=== PATIENT | female | born 1935 | race Caucasian/White ===

== ENCOUNTER 2017-03-07 17:16 | Emergency (ER) | payer MEDICARE, OTHER ==
[~2017-03-07 17:16] MED LIST: COUMADIN PO; DARVOCET-N 1001 TA1 PO; UNIRETIC PO; VICODIN PO
== END 2017-03-07 18:16 | disposition home or self-care (01) ==
LOC: CFTX 17:16
DX: L50.0 Allergic urticaria (principal); I10 Essential (primary) hypertension; J44.9 Chronic obstructive pulmonary disease, unspecified; Z88.0 Allergy status to penicillin; Z88.8 Allergy status to other drugs, medicaments and biological substances
CPT/HCPCS: 99282

== ENCOUNTER 2017-06-04 07:20 | Inpatient (IN) | payer MEDICARE, OTHER ==
[~2017-06-04] VITALS: Ht 152.4 cm; Wt 59.8 kg
--- NOTE | ~2017-06-04 | CO ---
Unit #: [id number] #: [id number] Patient: JESSICA JI [id number] [address] [place], [place] [address] [id number] I MR#: [id number] NAME: JESSICA JI. ROOM: 97294 Age: 81 Sex: F Admission Date: 06/04/2017 : 1935 Attending Physician: Pedro Miranda M.D. Primary Care Physician: Nicolas Guerin M.D. Consultation Date: 06/04/2017 CONSULTATION REPORT REASON FOR CONSULT Hypoxic respiratory failure. HISTORY OF PRESENT ILLNESS This is a very pleasant 81-year-old female, who has a past medical history significant for valve replacement on Coumadin, hypertension, congestive heart failure, who presented to the emergency room with progressive shortness of breath for the last few days. Patient stated that she lives with her son and usually she is able to get up and walk; however, for the last two weeks, she has been feeling profoundly fatigued and having trouble breathing. She was short of breath and coughing but no sputum production. She denied any fever and she said that she always feels cold. She denied any sinus drainage or sneezing. Patient stated that she is compliant with her medication. Patient does not use oxygen at home, and she has no sleep machine. PAST MEDICAL HISTORY 1. Valve replacement, unsure if it is aortic or mitral. 2. Questionable COPD. 3. Hypertension. 4. Diverticular disease. PAST SURGICAL HISTORY 1. Hysterectomy. 2. Cholecystectomy. 3. Mechanical valve. SOCIAL HISTORY The patient never smoked. No history of alcohol. No drug abuse. She lives with her son. ALLERGIES No known drug allergies. FAMILY HISTORY Hypertension. REVIEW OF SYSTEMS A 12-point review of systems was obtained and was negative except for what was mentioned in the HPI. PHYSICAL EXAMINATION GENERAL: The patient is in mild respiratory distress. Unit #: [id number] #: [id number] Patient: JESSICA JI VITAL SIGNS: Heart rate 124, respiratory rate 18, O2 saturation 96% on 4 L nasal cannula. HEENT: Atraumatic, normocephalic. PERRLA. EOMI. NECK: Supple. No JVD. No lymphadenopathy. CHEST: Coarse rhonchi in the mid lung zone, mainly on the left side. HEART: S1, S2. Sinus tachycardia. ABDOMEN: Soft, nontender. Bowel sounds are positive. No hepatosplenomegaly. EXTREMITIES: No edema or cyanosis. SKIN: No rashes. CENTRAL NERVOUS SYSTEM: Awake, alert, oriented x3. No focal motor/sensory deficits. DIAGNOSTIC STUDIES LABORATORY: Potassium 3.4. Bilirubin 1.4. BNP 1546. White blood count 9.5, hemoglobin 13.7. IMAGING: Chest x-ray and CT abdomen are reviewed and noted by me and consistent with pleural effusion. ASSESSMENT 1. Acute hypoxic respiratory failure. 2. Acute on chronic congestive heart failure, likely systolic. 3. Rule out pneumonia. 4. Diverticular disease. 5. Mechanical valve replacement. 6. Hypertension. PLAN 1. (1) and labs to rule out pneumonia completely. At this point, will need to dedicated CT chest to better evaluate the lung parenchyma. 2. Will hold on antibiotics until further testing is back. 3. Will obtain procalcitonin and follow blood culture. 4. IV diuretics per cardiology. 5. Bronchodilator and mucolytics. 6. Physical therapy evaluation. 7. Coumadin. I would like to thank Dr. Miranda for allowing me to be part of this patient's care. Dictated by... Arnel Fisher TD: 06/04/2017 14:33 JOB #: [id number] Unit #: [id number] #: [id number] Patient: SEVENNADIYA MORTONTREMAINE Durham CONSULTATION REPORT Page 1 of 1 X LANIE CARPIO MD CONSULTATION REPORT
--- NOTE | ~2017-06-04 | CO ---
Unit #: [id number] #: [id number] Patient: JESSICA JI [id number] [address] [place], [place] [address] [id number] I MR#: [id number] NAME: JESSICA JI. ROOM: 551 Age: 81 Sex: F Admission Date: 06/04/2017 : 1935 Attending Physician: Pedro Miranda M.D. Primary Care Physician: Nicolas Guerin M.D. Consultation Date: 06/04/2017 CONSULTATION REPORT DICTATED FOR Dr. Dany Tapia, [facility] Cardiology. REASON FOR CONSULT Possible CHF. HISTORY OF PRESENT ILLNESS The patient is a 81-year-old white female, who was seen by Dr. Osullivan with a history of mechanical AVR in 1997 where she is on Coumadin; nonischemic cardiomyopathy with an EF of 10% to 15%; cardiac cath in 05/2015, results below; hypertension; and recent admit to [facility] where she did have an acute kidney injury with a creatinine of 1.2. The patient was recently sent home from [facility] and she states that for the past one week, she has been short of breath with exertion. For example, walking to the bathroom at home. She also complains of difficulty breathing when she lies flat as well as some nausea and a nonproductive cough as well as right-sided chest pain. The patient denies any vomiting, diarrhea, fevers, or chills. No lightheadedness, dizziness, or syncope. The patient had a cardiac cath in 05/2015 that showed normal left main LAD mid 50% to 60% stenosis, left circumflex mid 60% calcified lesion, RCA was dominant with 30%. Cardiology was asked to evaluate the patient for possible CHF. PAST MEDICAL HISTORY 1. Hypertension. 2. Mechanical AVR in 1997. 3. Herpes zoster. 4. Appendectomy. 5. Nonischemic cardiomyopathy with an EF of 10% to 15%. PAST SURGICAL HISTORY Includes: 1. Appendectomy. 2. Cholecystectomy. ALLERGIES Include penicillin, codeine, and aspirin. HOME MEDICATIONS 1. [place]land 7.5/325 one tablet four times a day as needed for pain. 2. Bumex 1 mg p.o. daily. 3. Coreg 3.125 mg p.o. twice a day. Unit #: [id number] #: [id number] Patient: JESSICA JI. Coumadin 5 mg p.o. on Wednesday, Wednesday, , Wednesday, and Wednesday p.o. Tuesdays and Fridays. REVIEW OF SYSTEMS A 10-point review of systems negative except for as listed in HPI. PHYSICAL EXAMINATION GENERAL: This is a 81-year-old white female, who is alert and oriented x3, in no apparent distress. VITAL SIGNS: Blood pressure 121/94, temperature 97.3, pulse 115, and respirations 20. HEENT: Pupils are equal, round, and reactive. Oral mucosa is moist. NECK: No JVD. No thyromegaly. No lymphadenopathy. No carotid bruits. HEART: S1 and S2. No S3 or S4. Positive click from mechanical valve. No rubs. No murmurs. LUNGS: Coarse rhonchi throughout. ABDOMEN: Soft. Bowel sounds positive. Nontender. Nondistended. EXTREMITIES: No swelling. NEUROLOGICAL: No neuro deficits noted. DIAGNOSTIC STUDIES LABORATORY RESULTS: White count 9.5, hemoglobin 13.7, hematocrit 41.5, and platelets 250. Sodium 135, potassium 3.4, chloride 101, CO2 of 23, BUN 35, creatinine 1.3, glucose 149. INR 2.4. Lactic 1.7. Troponin less than 0.05. BNP is 1546. IMAGING RESULTS: Chest x-ray showed prominent cardiomegaly with mild central vascular congestion with a worsening moderate right pleural effusion and right basilar atelectasis. EKG showed atrial fibrillation with RVR with a rate of 124. IMPRESSION 1. Possibly acute on chronic systolic heart failure exacerbation. 2. Moderate right pleural effusion. 3. Hypertension. 4. Nonobstructive coronary artery disease. 5. Nonischemic cardiomyopathy with an EF of 10% to 15%. 6. Acute kidney injury. PLAN 1. We will start the patient on IV Bumex every 12 hours. Unless renal chooses to do something else. We will place the patient on fluid restriction of 1800 mL per day. 2. We will do daily weights. 3. We will put on a low-sodium healthy heart diet. 4. Strict I's and O's q.4. 5. We will place Coreg if systolic less than 100 or heart rate less than 60. 6. We will start Cardizem drip to titrate for heart rate less than 110. We will check labs in the morning. Dr. Tapia to see and evaluate the patient. Further recommendations pending his evaluation. Discussed the plan as it is with him over the phone. Dictated by... uSdha Prince APRN for Dany Tapia M.D. Unit #: [id number] #: [id number] Patient: NADIYA JITREMAINE ROSENTHAL/yared TD: 06/05/2017 14:51 JOB #: [id number] CONSULTATION REPORT Page 1 of 1 X X CONSULTATION REPORT
--- NOTE | ~2017-06-04 | CT57 ---
[facility] A Service of [facility] & [facility] RADIOLOGY TEXT RESULTS PATIENT: JESSICA JI LOCATION: [place] [address] : [birth year] UNIT #: [id number] AGE: [address]: Pdero Miranda MD SEX: F ORDER DR: [id number] [facility] [address] [place], [place] [address] [id number] I MR#: [id number] #: [id number] NAME: JESSICA JI : 1935 SEX: F STUDY DATE/TIME: 06/04/2017 16:55 UNIT: [facility] ROOM: [facility] STUDY DESCRIPTION: CT Chest Wo Cont Attending Physician: Pedro Miranda M.D. Ordering Physician: Evelin Parsons M.D. Primary Care Physician: Nicolas Guerin M.D. MEDICAL IMAGING REPORT This report is preliminary unless electronic signature is present EXAM CT chest without contrast HISTORY Shortness of air for 1 week. Cough. TECHNIQUE This CT exam was performed with one or more of the following radiation dose reduction techniques: automatic control, adjustment of mA and/or kV according to patient size, and iterative reconstruction. FINDINGS CT chest without contrast demonstrates small right pleural effusion and minimal left pleural effusion. Minimal atelectasis in the posterior left lower lobe and mild atelectasis in the right middle lobe and inferior right lower lobe. No definite airspace infiltrates. Mild right paratracheal adenopathy measuring 1.3 cm could be reactive or inflammatory. Mild dilatation of the ascending thoracic aorta measuring 3.8 cm. Cholecystectomy. IMPRESSION 1. Small right pleural effusion and minimal left pleural effusion. 2. Mild atelectasis in the right middle lobe and in the bilateral lower lobes. No definite airspace infiltrates. 3. Mild right paratracheal adenopathy could be reactive or inflammatory. 4. Mild dilatation of the ascending thoracic aorta measuring 3.8 cm. Dictated by... Manuel Farris M.D. THIS IS AN ELECTRONICALLY VERIFIED REPORT Manuel Farris M.D. at 06/04/2017 11:48 PM [facility] A Service of [facility] RADIOLOGY TEXT RESULTS PATIENT: JESSICA JI LOCATION: [facility] 551-01 : 37 UNIT #: [id number] AGE: [address]: Pedro Miranda MD SEX: F ORDER DR: LAQUITA/celeste TD: 06/04/2017 22:52 JOB #: [id number] MEDICAL IMAGING REPORT Page 1 of 1 COPY
--- NOTE | ~2017-06-04 | DS ---
Unit #: [id number] #: [id number] Patient: JESSICA JI [id number] [address] [address] [id number] I MR#: [id number] NAME: JESSICA JI. ROOM: 551 Age: 81 Sex: F Admission Date: 06/04/2017 : 1935 Discharge Date: 06/10/2017 Attending Physician: Pedro Miranda M.D. Primary Care Physician: Nicolas Guerin M.D. DISCHARGE SUMMARY FINAL DIAGNOSES 1. Acute hypoxic respiratory failure. 2. Congestive heart failure exacerbation. 3. Ischemic cardiomyopathy with ejection fraction of 10%-15%. 4. Mechanical aortic valve placement. 5. Atrial fibrillation. 6. Acute kidney injury on chronic kidney disease. 7. Hypertension. 8. Valvular heart disease. 9. History of diverticulosis. 10. Coronary artery disease status post catheterization in 2014, mid LAD 50%-60%. DISCHARGE MEDICATIONS 1. Albuterol nebulizer treatment at home q.i.d. 2. ProAir inhaler on a p.r.n. basis. 3. Coumadin 2.5 mg daily. 4. Coreg 12.5 mg b.i.d. 5. Lanoxin 0.125 mg daily. 6. Bumex 2 mg p.o. b.i.d. 7. ProAmatine 5 mg t.i.d. 8. Pepcid 20 mg daily. 9. Lortab 7.5/325 mg 1 tablet t.i.d. p.r.n. 10. Spironolactone 25 mg daily. 11. Potassium [address] Tapia from cardiology services. Dr. Cespedes from pulmonary services. Dr. Garibay from renal services. DIAGNOSTIC DATA IMAGING: CT scan of the chest which showed small right pleural effusion and minimal left pleural effusion. Mild atelectasis in the right middle lobe and bilateral lower lobes. Mild right paratracheal adenopathy, could be active or inflammatory. Mild dilatation of the ascending thoracic aorta measuring 3.[address] scan of the abdomen and pelvis was done during hospitalization, which shows moderate right small and left pleural effusion. The patient is post cholecystectomy. Dilated common bile duct. The patient has scattered diffuse colonic diverticula particularly in the descending colon and sigmoid colon. Persistent suggested wall thickening in the mid sigmoid colon. Unit #: [id number] #: [id number] Patient: JESSICA JI LABORATORY: on discharge, BMP shows sodium 136, potassium 3.9, chloride 100, BUN 34, creatinine 1.4, calcium 8.9. PT/INR 31.4 and 2.9. Urine culture is colony count 20,000 mixed growth. Blood culture done on 06/05/2017 no growth. TSH is 0.81, in normal range. CBC shows white blood cell count 10.1, hemoglobin 12.2, hematocrit 37.0 and platelet count 190. BNP on admission was 1,546. Lactic acid was 1.7. Procalcitonin level 0.07. HOSPITAL COURSE Ms. Hernandez is a 81-year-old female who was admitted by my colleague, Dr. Miranda, with acute hypoxic respiratory failure. The patient was admitted to the telemetry unit and diagnosed with acute exacerbation of congestive heart failure. Dr. Tapia' group was consulted. The patient's medications have been adjusted. She is on 1800 ml fluid restriction. She received IV Bumex q.12 h. Low-sodium heart diet was advised. Strict ins and outs were done. The patient is doing much better from that respect. The patient does have nonischemic cardiomyopathy with ejection fraction of 10%-15%. The patient has a history of atrial fibrillation and mechanical valve replacement. She is on chronic anticoagulation therapy. Her INR was elevated during hospitalization. It was held. Now the patient is on Coumadin 2.5 mg p.o. daily. She will follow up with Dr. Tapia' office for pro time. She is aware of this. Dr. Cespedes was involved in the patient's care. There was no pneumonia. The patient does have some abnormal CT findings. Repeat CT scan should be done in four to six weeks. The patient had fhvxe-il-yrhxyjw kidney disease. Dr. Garibay was consulted. The patient's kidney function seems to be stable. The patient will follow up with Dr. Garibay again in four to six weeks. The patient's CT scan of the abdomen showed some diverticulosis and thickening in the colon. The patient may need colonoscopy as an outpatient. That needs to be discussed with the patient as an outpatient. PHYSICAL EXAMINATION VITALS: At discharge, blood pressure 104/56, respiratory rate 17, pulse 87, temperature 97.6, oxygen saturation 99%. HEENT: Head is normocephalic. CHEST: Fair air entry. Decreased at the bases. HEART: Mechanical valve click is heard. EXTREMITIES: Negative edema. DISCHARGE INSTRUCTIONS 1. The patient is being discharged home in stable condition. 2. Medication as per medication reconciliation. 3. Follow up with primary care provider in one week. 4. PT/INR at Dr. Tapia' office on 06/17/2017. 5. Follow up with Dr. Tapia in four weeks. 6. Follow up with Dr. Garibay in four to six weeks. 7. CBC and BMP in one week. 8. CT scan of the chest in four to six weeks. 9. Follow-up colonoscopy as outpatient. Unit #: [id number] #: [id number] Patient: JESSICA JI Dictated by... Arnel Christianson/luis fernando TD: 06/12/2017 08:45 JOB #: [id number] DISCHARGE SUMMARY Page 1 of 1 X Vale Granger MD X DISCHARGE SUMMARY
--- NOTE | ~2017-06-04 | CT4 ---
[facility] A Service of [facility] & [facility] RADIOLOGY TEXT RESULTS PATIENT: JESSICA JI LOCATION: [place] [id number] : 37 UNIT #: [id number] AGE: [address]: Pedro Miranda MD SEX: F ORDER DR: [id number] [facility] [address] [place], [place] [address] [id number] I MR#: [id number] Acc #: [id number] NAME: JESSICA JI. : 1935 SEX: F STUDY DATE/TIME: 06/04/2017 11:00 UNIT: [facility] ROOM: 81937 STUDY DESCRIPTION: CT Abd and Pelv Wo Cont Attending Physician: Pedro Miranda M.D. Ordering Physician: Hermilo Bingham D.O. Primary Care Physician: Nicolas Guerin M.D. MEDICAL IMAGING REPORT This report is preliminary unless electronic signature is present EXAM CT abdomen and pelvis without contrast 06/04/2017 11 o'clock hours HISTORY 81-year-old with iyz-wj-qelnh abdominal pain for [address] abdomen and pelvis 05/13/2017. TECHNIQUE Helical noncontrasted images were obtained from the lung bases through the pubic symphysis. Sagittal and coronal reconstructions were performed. No contrast was administered. Total exam DLP 689 mGy-cm. This CT examination was performed with one or more of the following radiation dose reduction techniques: automatic exposure control, adjustment of mA and/or kV according to patient size, and iterative reconstruction. FINDINGS Images through the lung bases demonstrate median sternotomy change with aortic valve replacement. There is moderate right and small left pleural effusion. Right effusion has increased slightly since 05/13/2017. There is linear basilar density at both bases most consistent with atelectasis. Images through the abdomen demonstrate a slightly small liver without focal liver lesion. The spleen, pancreas and bile ducts are normal. The common bile duct is dilated to diameter 2.8 cm previously 2.2 cm. No definite common bile duct stone or mass is seen. The pancreas and pancreatic duct are normal. Correlate with lab values. The adrenal glands are normal. The kidneys are mildly atrophic without mass or stone. The abdominal aorta is normal in caliber. Stomach is contracted and unopacified but appears normal. There is no small bowel distension or small bowel wall thickening. The appendix is STS. [facility] A Service of [facility] & [facility] RADIOLOGY TEXT RESULTS PATIENT: JESSICA JI LOCATION: [facility] [id number] : 37 UNIT #: [id number] AGE: [address]: Pedro Miranda MD SEX: F ORDER DR: normal. There are scattered diffuse colonic diverticula particularly in the descending colon and sigmoid colon. There is persistent suggested wall thickening in the mid sigmoid colon similar to prior exam. No definite fluid or fluid collection. 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 This appears unchanged. There is a small fat containing ventral hernia anterior to the liver in the upper abdomen with 2 small defects present both containing only fat. These are also unchanged. IMPRESSION 1. Moderate right small left pleural effusion. The right effusion appears slightly larger than 05/13/2017. 2. The patient is post cholecystectomy. There is a dilated common bile duct increased from 05/13/2017. It measures up to 2.8 cm today, previously 2.2 cm. No definite common bile duct stone or ampullary mass is seen. The pancreas and pancreatic duct are normal. Suggest correlation with lab values. Consider followup MRCP or ERCP if clinically warranted. 3. Diffuse diverticulosis with suggested persistent wall thickening of the mid sigmoid colon similar to 05/13/2017. Findings could represent recurrent diverticulitis. Other entities including a colonic mass could have this appearance given the lack of change from 05/13/2017. Suggest correlation with follow up colonoscopy after treatment for diverticulitis. 4. Normal small bowel and appendix. 5. The patient has 2 small upper abdominal wall midline ventral hernias containing only fat anterior to the liver. There is a lower abdominal panniculus with 2 components both containing fat and small bowel. There is no obstruction or incarceration. No change from 05/13/2017. Dictated by... Eva Hankins M.D. THIS IS AN ELECTRONICALLY VERIFIED REPORT Eva Hankins M.D. at 06/04/2017 2:31 PM Bethanie TD: 06/04/2017 14:01 JOB #: [id number] MEDICAL IMAGING REPORT Page 1 of 1 COPY
--- NOTE | ~2017-06-04 | CR72 ---
[facility] A Service of [facility] & [facility] RADIOLOGY TEXT RESULTS PATIENT: JESSICA JI LOCATION: [place] [address]- : 37 UNIT #: [id number] AGE: [address]: Pedro Miranda MD SEX: F ORDER DR: [id number] [facility] [address] [place], [place] [address] [id number] I MR#: [id number] Acc #: [id number] NAME: JESSICA JI. : 1935 SEX: F STUDY DATE/TIME: 06/08/2017 5:53 UNIT: [facility] ROOM: [facility] STUDY DESCRIPTION: CR Chest Single View Portable Attending Physician: Pedro Miranda M.D. Ordering Physician: Pedro Miranda M.D. Primary Care Physician: Nicolas Guerin M.D. MEDICAL IMAGING REPORT This report is preliminary unless electronic signature is present EXAM Frontal chest 06/08/2017 INDICATION 81-year-old female with respiratory failure. Shortness of air and fatigue. Symptoms 4 days. Hypertension. History of bypass surgery and valve replacement. TECHNIQUE Frontal chest compared with 06/04/2017. FINDINGS The heart is enlarged but stable status post median sternotomy. There is vascular congestion and mild interstitial edema. Right-sided effusion with compressive atelectasis or pneumonia in the lower lung zone on the right. There are calcified granulomas. There is no pneumothorax. Prominence of the right hilum unchanged. Correlation with CT 06/04/2017 demonstrates paratracheal adenopathy. Please see that report for further details. IMPRESSION 1. Cardiomegaly with volume overload. 2. No significant change in a right-sided effusion with compressive atelectasis or pneumonia in the right lung base. Dictated by... Bj Chester M.D. THIS IS AN ELECTRONICALLY VERIFIED REPORT Bj Chester M.D. at 06/08/2017 2:18 PM JAIRO/sukhwinder [facility] A Service of [facility] & [facility] RADIOLOGY TEXT RESULTS PATIENT: JESSICA JI LOCATION: [facility] 551- : 37 UNIT #: [id number] AGE: [address]: Pedro Miranda MD SEX: F ORDER DR: TD: 06/08/2017 14:00 JOB #: [id number] MEDICAL IMAGING REPORT Page 1 of 1 COPY
--- NOTE | ~2017-06-04 | HP ---
Unit #: [id number] #: [id number] Patient: JESSICA JI [id number] [address] [address] [id number] I MR#: [id number] NAME: JESSICA JI. ROOM: 551 Age: 81 Sex: F Admission Date: 06/04/2017 : 1935 Attending Physician: Pedro Miranda M.D. Primary Care Physician: Nicolas Guerin M.D. HISTORY AND PHYSICAL ADMISSION DIAGNOSES 1. Acute hypoxemic respiratory failure. 2. Questionable acute exacerbation of congestive heart failure. 3. History of valvular heart disease on chronic anticoagulation. 4. Hypertension. HISTORY OF PRESENT ILLNESS Patient is a 81-year-old female who comes to the emergency room with complaints of increasing shortness of air and dyspnea. She has also been increasingly weak and fatigued for the last couple of weeks. She has been told that she does have a history of congestive heart failure by her primary joint cutter machine Dr. Ballard. She denies any active chest pain. Denies any headache, dizziness, syncope, or presyncope. Denies any fever, chills, nausea, vomiting, diarrhea, or abdominal pain. So 12 point review of systems on this patient is basically negative, except as above. PAST MEDICAL HISTORY Significant for history, again, of valvular heart disease, status post valve replacement with the mechanical valve on chronic anticoagulation. Also, history of coronary artery disease, hypertension, and COPD. PAST SURGICAL HISTORY Significant for hysterectomy, cholecystectomy, valve replacement, and CABG. HOME MEDICATIONS Apparently, she was takin. Bumex. 2. Albuterol. 3. Coreg. 4. Warfarin. 5. [place]. 6. ProAir. ALLERGIES Allergic to penicillin, codeine, and aspirin. SOCIAL HISTORY Denies any tobacco, alcohol, or illicit drugs. FAMILY HISTORY Significant for hypertension. PHYSICAL EXAM GENERAL APPEARANCE: She is a 81-year-old female in no acute distress. Unit #: [id number] #: [id number] Patient: JESSICA JI VITAL SIGNS: BP 127/83, heart rate 100, respirations 28, and temperature 97.7. HEENT: Head is atraumatic. Pupils are equal, round, and reactive to light and accommodation. Extraocular muscles intact. Oropharynx clear. NECK: Supple. No mass. No JVD. No bruits. CHEST: Diminished bilaterally with very mild expiratory wheezing. CARDIOVASCULAR: S1 and S2. No murmurs. ABDOMEN: Soft, nontender, and nondistended. LOWER EXTREMITIES: Without any significant cyanosis, clubbing, or edema. NEUROLOGIC: Patient grossly intact. No focal deficits. DIAGNOSTIC STUDIES IMAGING: Chest x-ray shows persistent cardiomegaly with mild central vascular congestion, moderate right pleural effusion, and right basilar atelectasis. CT abdomen and pelvis also was done in the ER, which showed moderate right and small left pleural effusions; dilated common bile duct increased from prior examination, measures about 2.8 cm today and previously 2.2 cm; diffuse diverticulosis suggesting persistent wall thickening and could represent diverticulitis; and 2 small upper abdominal wall midline ventral hernias containing only fat. LABORATORY: Chemistry significant for BUN and creatinine 35 and 1.5, GFR at 39, blood glucose 147, potassium 3.4. Coagulation panel: PT, INR, and PTT 26.1, 2.4, and 28.4. Set of cardiac enzymes negative. Hematology unremarkable. UA: 1+ leukocyte esterase. Blood culture pending. Urine culture pending. ASSESSMENT AND PLAN 1. Acute hypoxemic respiratory failure. 2. Acute exacerbation of congestive heart failure. 3. Diverticulitis. 4. Questionable chronic obstructive pulmonary disease. 5. Hypertension. 6. History of coronary artery disease. 7. History of valvular heart disease. 8. GI and DVT prophylaxes. Continue Pepcid. Continue Coumadin. Will give extra Coumadin today. Monitor INR. Dictated by Arnel Mcmahon/carlos TD: 06/05/2017 08:17 JOB #: [id number] Unit #: [id number] #: [id number] Patient: JESSICA JI HISTORY AND PHYSICAL Page 1 of 1 X Pedro Miranda MD HISTORY AND PHYSICAL
--- NOTE | ~2017-06-04 | CO ---
Unit #: [id number] #: [id number] Patient: MARY JI [id number] [address] [place], [place] [address] [id number] MR#: [id number] NAME: MARY JI. ROOM: 551 Age: 81 Sex: F Admission Date: 06/04/2017 : 1935 Attending Physician: Pedro Miranda M.D. Primary Care Physician: Nicolas Guerin M.D. Consultation Date: 06/04/2017 CONSULTATION REPORT REASON FOR CONSULTATION Renal insufficiency. Thank you very much for asking me to see this patient in consultation. HISTORY OF PRESENT ILLNESS Ms. Mary Ji is a 81-year-old female, who presented to the hospital with increased shortness of breath, was admitted for possible heart failure with pleural effusions, who has history of aortic valve replacement on chronic Coumadin, who was in the hospital. She states a couple weeks ago at [facility], where she had diverticulitis as well as some shortness of breath. She was sent home on some antibiotics, although she never got it filled due to money reasons she states. She presented here again with mainly complaints of increasing shortness of breath. No chest pain. Increase of some abdominal swelling and some constipation. She denies any nonsteroidal use. She denies any significant chest pain. She denies any worsening swelling in her legs. She denies any urinary symptoms. She was noted upon presentation to have BUN and creatinine of 35 and 1.3. Because of this, I was asked to see the patient, in 2014 showed a creatinine of 0.8. I do not have her records from [facility] 2 weeks ago yet. PAST MEDICAL HISTORY History of aortic valve replacement for approximately many years ago, status post cholecystectomy, history of questionable hypertension, history of congestive heart failure, history of diverticulitis. MEDICATIONS Her medicines currently include Coumadin, Bumex, carvedilol, Lortab, Pepcid. She was started on Cardizem drip here due to tachycardia. ALLERGIES Include penicillin, aspirin, Tylenol. SOCIAL HISTORY She is a . Does not smoke or drink. REVIEW OF SYSTEMS She denies any visual problems, sinus problems, cough, or hemoptysis. No neck pain or neck stiffness. No chest pain, chest heaviness, or palpitations. She denies any severe abdominal pain. She does have some constipation, with worsened and increased shortness of breath. She denies any recent skin rashes, any recent seizures or strokes. Unit #: [id number] #: [id number] Patient: MARY JI FAMILY HISTORY Noncontributory. PHYSICAL EXAMINATION GENERAL: She is alert and oriented, appears a little short of breath upon exam. VITAL SIGNS: T-max 98.4, pulse 114 to 126, blood pressure 121 to 136 over 70 to 90. HEENT: She is normocephalic and atraumatic. Pupils are equal, round, and reactive to light. Extraocular muscles are intact. Hearing appears to be normal. Mouth is clear. No erythema. No exudate. NECK: Supple. No adenopathy. CARDIAC: She is tachycardic without a rub. No S3 or S4. LUNGS: Have decreased breath sounds and rales at her bases, a few rhonchi otherwise. ABDOMEN: Overweight. Bowel sounds positive. No diffuse tenderness. No rebound or guarding. EXTREMITIES: She has no lower extremity swelling. Her pulses are intact in lower extremities. JOINTS: No joint pain or joint swelling. SKIN: No acute rashes. NEUROLOGIC: Appears to be intact motor and sensory grossly. : Deferred. DIAGNOSTIC STUDIES LABORATORY RESULTS: Shows sodium of 135, potassium 3.4, chloride is 101, bicarb is 23, BUN of 35, creatinine 1.3, glucose of 149, calcium is 9.4, albumin is 3.6. BNP is 1546. Lactic acid is 1.7. INR is 2.4. Hemoglobin is 13.7, white count 9500, platelets 250,000. ASSESSMENT AND PLAN 1. Renal insufficiency. This is a lady who in 2015 had a creatinine of 0.8, it is up to 1.3 now. Unsure of any previous creatinine besides the one mentioned above and/or any urine studies or any kidney problems. She did have a CT scan of her abdomen and pelvis that showed her kidneys were atrophic, but not exact size. She also had some mild dilatation of her common biliary duct and some diverticulosis. Chest x-ray showed large pleural effusion and some failure. Certainly, she could have some heart failures contributing to her renal insufficiency, although do not have an echo on her at this time. Again, we will also try to get all old records from [facility] to see what her previous creatinines are. Would certainly try to avoid contrast dye if possible for now, although may need down the road, also try to avoid nonsteroidals. We will increase her Bumex to 2 mg q.8 hours from IV q.12 for now and check urinalysis and check urine eosinophils. She was on antibiotics a couple of weeks ago to make sure she does not have possible acute interstitial nephritis and certainly depending on what her urinalysis shows depending on what further workup and treatment. 2. Shortness of breath, possible heart failure, effusions, versus other. Again increased Bumex. 3. Hypokalemia. The patient with low potassium. We will replace orally today. Recheck Mag and potassium in the morning. 4. Status post aortic valve replacement times approximately 20 years, on Coumadin. 5. History of diverticulosis. Dictated by... Unit #: [id number] #: [id number] Patient: MARY JI M.D. WAD/yared TD: 06/05/2017 06:35 JOB #: [id number] CONSULTATION REPORT Page 1 of 1 X To Garibay MD X CONSULTATION REPORT
--- NOTE | ~2017-06-04 | CR72 ---
[facility] A Service of [facility] RADIOLOGY TEXT RESULTS PATIENT: JESSICA JI LOCATION: [place] [address] : [birth year] UNIT #: [id number] AGE: [address]: Pedro Miranda MD SEX: F ORDER DR: [id number] [facility] [address] [place], [place] [address] [id number] MR#: [id number] Acc #: [id number] NAME: JESSICA JI. : 1935 SEX: F STUDY DATE/TIME: 06/04/2017 8:19 UNIT: [facility] ROOM: STUDY DESCRIPTION: CR Chest Single View Portable Attending Physician: Hermilo Bingham D.O. Ordering Physician: Hermilo Bingham D.O. Primary Care Physician: Nicolas Guerin M.D. MEDICAL IMAGING REPORT This report is preliminary unless electronic signature is present EXAM Portable chest, 06/04/2017 HISTORY 81-year-old female with shortness of air for 1 week. Congestive heart failure. Essential hypertension. COMPARISON Chest, 05/13/2017 FINDINGS Frontal chest again demonstrates cardiomegaly with mild central vascular congestion. There is a worsening moderate right pleural effusion and right basilar atelectasis. No pneumothorax. IMPRESSION 1. Persistent cardiomegaly with mild central vascular congestion. 2. Worsening moderate right pleural effusion and right basilar atelectasis. Dictated by... Kvng Green M.D. THIS IS AN ELECTRONICALLY VERIFIED REPORT Kvng Green M.D. at 06/07/2017 1:16 PM Renny TD: 06/04/2017 10:46 JOB #: [id number] MEDICAL IMAGING REPORT Page 1 of 1 COPY
--- NOTE | ~2017-06-04 | EKG ---
PATIENT: JESSICA JI UNIT #: [id number] Ventricular Rate: 124 BPM Atrial Rate: 64 BPM QRS Duration: 136 ms Q-T Interval: 360 ms QTC Calculation(Bezet): 517 ms Calculated R [place]: 117 degrees Calculated T [place]: -53 degrees Diagnosis Line: Atrial fibrillation with rapid ventricular Diagnosis Line: response with premature ventricular or aberrantly Diagnosis Line: conducted complexes Diagnosis Line: Right axis deviation Diagnosis Line: Non-specific intra-ventricular conduction block Diagnosis Line: T wave abnormality, consider inferolateral Diagnosis Line: ischemia Diagnosis Line: Abnormal ECG Diagnosis Line: When compared with ECG of 31-MAR-2015 00:12, Diagnosis Line: Atrial fibrillation has replaced Sinus rhythm Diagnosis Line: QRS axis Shifted right Diagnosis Line: Inverted T waves have replaced nonspecific T wave Diagnosis Line: abnormality in Inferior leads Diagnosis Line: Confirmed by GARTH GUERRIER MD ([id number]) on Diagnosis Line: 06/04/2017 3:05:50 PM INTERPRETING MD: FAREED WEINER
[2017-06-04 08:42] LABS: BASOPHIL# 0.1 X10e3 (0-0.3); BASOPHIL% 0.9 % (0-2.5); EOSINOPHIL# 0.1 X10e3 (0-0.7); EOSINOPHIL% 0.7 % (0.0-7.0); HEMATOCRIT 41.5 % (35.0-45.0); HEMOGLOBIN 13.7 gm/dL (12.0-16.0); LYMPHOCYTE# 1.1 X10e3 (1.0-3.5); LYMPHOCYTE% 11.6 % (17.0-45.0); MEAN CELL VOLUME 88.8 FL (83-96); MEAN CORPUSCULAR HEMOGLOBIN 29.2 PG (28-34); MEAN CORPUSCULAR HGB CONC 32.9 g/dL (30-36); MEAN PLATELET VOLUME 8.2 FL (6.5-11.5); MONOCYTE# 0.6 X10e3 (0-1.0); MONOCYTE% 6.2 % (3.0-12.0); NEUTROPHIL# 7.7 X10e3 (1.5-7.1); NEUTROPHIL% 80.6 % (40-75); PLATELET COUNT 250 X10e3 (140-420); RED BLOOD COUNT 4.68 X10e (3.90-5.30); RED CELL DISTRIBUTION WIDTH 15.8 % (11.0-15.5); WHITE BLOOD COUNT 9.5 X10e3 (4.0-10.5)
[2017-06-04 08:43] LABS: DIFF IND NO
[2017-06-04 08:55] LABS: INR 2.4; PARTIAL THROMBOPLASTIN TIME 28.4 SECONDS (23.5-31.3); PROTHROMBIN TIME (PATIENT) 26.1 SECONDS (10.0-11.7)
[2017-06-04] MEDS ORDERED: NORCO 7.5-3251 EACH PO (09:07)
[2017-06-04] MEDS ORDERED: ALBUTEROL2.5 MG/3 M INH (09:08)
[2017-06-04] MEDS ORDERED: BUMEX1 MG PO (09:11)
[2017-06-04] MEDS ORDERED: PROAIR RESPICL90 MCG INH (09:11)
[2017-06-04] MEDS ORDERED: COREG3.125 MG PO (09:12)
[2017-06-04] MEDS ORDERED: COUMADIN2.5 MG PO (09:13)
[2017-06-04] MEDS ORDERED: COUMADIN5 MG PO (09:13)
[2017-06-04 09:14] LABS: ALBUMIN SERUM 3.6 g/dL (3.5-5.0); BILIRUBIN, DIRECT 0.2 mg/dL (0.0-0.2); BILIRUBIN,INDIRECT 1.4 mg/dL (0.0-0.9); BILIRUBIN,TOTAL 1.6 mg/dL (0.2-2.0); BUN/CREATININE RATIO 26.92; CALCIUM SERUM 9.4 mg/dL (8.4-10.2); CREATININE SERUM 1.3 mg/dL (0.6-1.4); POTASSIUM 3.4 mmol/L (3.5-5.1); PROTEIN TOTAL SERUM 7.2 g/dL (6.0-8.3)
[2017-06-04 09:50] LABS: POC - CKMB 1.2 ng/mL (0.0-7.9); POC - TROPONIN <0.05 ng/mL (<=0.05)
[2017-06-04 12:22] LABS: POC - CKMB 1.1 ng/mL (0.0-7.9); POC - TROPONIN <0.05 ng/mL (<=0.05)
[2017-06-04 17:50] LABS: URINE APPEARANCE CLEAR; URINE BILIRUBIN NEG (NEG); URINE BLOOD 1+ (NEG); URINE COLOR YELLOW; URINE GLUCOSE NEG (NEG); URINE KETONE NEG (NEG); URINE LEUKOCYTE ESTERASE 1+ (NEG); URINE NITRATE NEG (NEG); URINE PROTEIN TRACE (NEG); URINE SPECIFIC GRAVITY 1.018 (1.003-1.035); URINE UROBILINOGEN 0.2 MG/DL (NEG)
[2017-06-04 17:53] LABS: URBCS1 AUWI 0-2 /[HPF] (0-2); URINE BACTERIA AUWI NEG (NEGATIVE); URINE SQUAMOUS EPITHELIAL CELL OCC /[HPF]
[2017-06-05 01:28] LABS: BASOPHIL% 0.2 % (0-2.5); HEMATOCRIT 39.4 % (35.0-45.0); LYMPHOCYTE# 0.6 X10e3 (1.0-3.5); MEAN CELL VOLUME 88.6 FL (83-96); MEAN CORPUSCULAR HEMOGLOBIN 29.2 PG (28-34); MEAN PLATELET VOLUME 8.2 FL (6.5-11.5); MONOCYTE# 0.4 X10e3 (0-1.0); MONOCYTE% 3.6 % (3.0-12.0); NEUTROPHIL# 8.9 X10e3 (1.5-7.1); NEUTROPHIL% 90.2 % (40-75); PLATELET COUNT 235 X10e3 (140-420); RED BLOOD COUNT 4.45 X10e (3.90-5.30); RED CELL DISTRIBUTION WIDTH 15.6 % (11.0-15.5); WHITE BLOOD COUNT 9.8 X10e3 (4.0-10.5)
[2017-06-05 01:29] LABS: DIFF IND NO
[2017-06-05 06:40] LABS: HEMATOCRIT 38.5 % (35.0-45.0); HEMOGLOBIN 12.6 gm/dL (12.0-16.0); MEAN CORPUSCULAR HGB CONC 32.6 g/dL (30-36); RED BLOOD COUNT 4.33 X10e (3.90-5.30); RED CELL DISTRIBUTION WIDTH 15.9 % (11.0-15.5); WHITE BLOOD COUNT 11.2 X10e3 (4.0-10.5)
[2017-06-05 07:11] LABS: INR 3.9
[2017-06-05 07:14] LABS: PROTHROMBIN TIME (PATIENT) 42.3 SECONDS (10.0-11.7)
[2017-06-05 08:03] LABS: ALBUMIN SERUM 3.3 g/dL (3.5-5.0); BILIRUBIN,TOTAL 1.1 mg/dL (0.2-2.0); BUN/CREATININE RATIO 27.85; CALCIUM SERUM 9.2 mg/dL (8.4-10.2); CREATININE SERUM 1.4 mg/dL (0.6-1.4); GLOM FILT RATE Estimated 35.6 mL/min (>60); MAGNESIUM 1.8 mg/dL (1.6-3.0); POTASSIUM 3.9 mmol/L (3.5-5.1); PROTEIN TOTAL SERUM 6.2 g/dL (6.0-8.3)
[2017-06-06 08:06] LABS: BASOPHIL# 0.1 X10e3 (0-0.3); BASOPHIL% 0.8 % (0-2.5); DIFF IND NO; EOSINOPHIL# 0.1 X10e3 (0-0.7); HEMOGLOBIN 12.2 gm/dL (12.0-16.0); LYMPHOCYTE# 1.4 X10e3 (1.0-3.5); LYMPHOCYTE% 13.5 % (17.0-45.0); MEAN CELL VOLUME 88.6 FL (83-96); MEAN CORPUSCULAR HEMOGLOBIN 29.1 PG (28-34); MEAN CORPUSCULAR HGB CONC 32.9 g/dL (30-36); MEAN PLATELET VOLUME 8.1 FL (6.5-11.5); MONOCYTE# 0.7 X10e3 (0-1.0); MONOCYTE% 6.9 % (3.0-12.0); NEUTROPHIL# 7.9 X10e3 (1.5-7.1); NEUTROPHIL% 77.8 % (40-75); PLATELET COUNT 190 X10e3 (140-420); RED BLOOD COUNT 4.18 X10e (3.90-5.30); RED CELL DISTRIBUTION WIDTH 15.8 % (11.0-15.5); WHITE BLOOD COUNT 10.1 X10e3 (4.0-10.5)
[2017-06-06 08:20] LABS: INR 3.5; PROTHROMBIN TIME (PATIENT) 37.6 SECONDS (10.0-11.7)
[2017-06-06 08:30] LABS: BUN/CREATININE RATIO 33.07; CALCIUM SERUM 8.9 mg/dL (8.4-10.2); CREATININE SERUM 1.3 mg/dL (0.6-1.4); MAGNESIUM 2.2 mg/dL (1.6-3.0); POTASSIUM 3.4 mmol/L (3.5-5.1)
[2017-06-07 08:45] LABS: INR 3.2; PROTHROMBIN TIME (PATIENT) 34.5 SECONDS (10.0-11.7)
[2017-06-07 08:53] LABS: BUN/CREATININE RATIO 27.22; CALCIUM SERUM 9.2 mg/dL (8.4-10.2); CREATININE SERUM 1.8 mg/dL (0.6-1.4); GLOM FILT RATE Estimated 26.3 mL/min (>60); MAGNESIUM 2.2 mg/dL (1.6-3.0); POTASSIUM 4.4 mmol/L (3.5-5.1)
[2017-06-08 06:56] LABS: INR 3.9
[2017-06-08 07:04] LABS: BUN/CREATININE RATIO 28.75; CALCIUM SERUM 8.8 mg/dL (8.4-10.2); CREATININE SERUM 1.6 mg/dL (0.6-1.4); GLOM FILT RATE Estimated 30.3 mL/min (>60); POTASSIUM 3.6 mmol/L (3.5-5.1)
[2017-06-09 07:26] LABS: INR 3.7; PROTHROMBIN TIME (PATIENT) 39.8 SECONDS (10.0-11.7)
[2017-06-09 08:05] LABS: BUN/CREATININE RATIO 27.85; CALCIUM SERUM 8.8 mg/dL (8.4-10.2); CREATININE SERUM 1.4 mg/dL (0.6-1.4); GLOM FILT RATE Estimated 35.6 mL/min (>60); MAGNESIUM 1.9 mg/dL (1.6-3.0); POTASSIUM 3.5 mmol/L (3.5-5.1)
[2017-06-10 05:46] LABS: INR 2.9; PROTHROMBIN TIME (PATIENT) 31.4 SECONDS (10.0-11.7)
[2017-06-10 06:17] LABS: BUN/CREATININE RATIO 24.28; CALCIUM SERUM 8.9 mg/dL (8.4-10.2); CREATININE SERUM 1.4 mg/dL (0.6-1.4); GLOM FILT RATE Estimated 35.6 mL/min (>60); POTASSIUM 3.9 mmol/L (3.5-5.1)
[2017-06-10] MEDS ORDERED: ALDACTONE25 MG PO (16:06)
[2017-06-10] MEDS ORDERED: KCL PO (16:07)
[2017-06-10] MEDS ORDERED: COMBIVENT U/D3 M2 INH (16:09)
[2017-06-10] MEDS ORDERED: LANOXIN125 MCG PO (16:09)
[2017-06-10] MEDS ORDERED: PRO-AMATINE5 M2 PO (16:10)
[2017-06-10] MEDS ORDERED: PEPCID PO (16:11)
== END 2017-06-10 17:48 | disposition home or self-care (01) | DRG 291 ==
LOC: CED 07:20 → CEDOF 11:35 → C5B 11:35 → CED 12:07 → CEDOF 12:07 → C5B 14:54 → CEDOF 14:54 → C5B 06-10 17:48
PROVIDERS: Emergency Medicine; Hospitalist; Internal Medicine Cardiovascular Disease; Internal Medicine Nephrology; Nurse Practitioner; Orthopaedic Surgery; Physician Assistant Medical
PROC: 05H633Z Insertion of Infusion Device into Left Subclavian Vein, Percutaneous Approach (ICD-10-PCS; principal; 2017-06-04)
PROC: B547ZZA Ultrasonography of Left Subclavian Vein, Guidance (ICD-10-PCS; 2017-06-04)
DX: I13.0 Hypertensive heart and chronic kidney disease with heart failure and stage 1 through stage 4 chronic kidney disease, or unspecified chronic kidney disease (principal); J96.01 Acute respiratory failure with hypoxia; N17.9 Acute kidney failure, unspecified; I50.43 Acute on chronic combined systolic (congestive) and diastolic (congestive) heart failure; J44.1 Chronic obstructive pulmonary disease with (acute) exacerbation; Z79.01 Long term (current) use of anticoagulants; Z90.710 Acquired absence of both cervix and uterus; Z90.49 Acquired absence of other specified parts of digestive tract; Z95.2 Presence of prosthetic heart valve; Z95.1 Presence of aortocoronary bypass graft; I25.10 Atherosclerotic heart disease of native coronary artery without angina pectoris; Z88.6 Allergy status to analgesic agent; Z88.0 Allergy status to penicillin; E87.6 Hypokalemia; I35.1 Nonrheumatic aortic (valve) insufficiency; I48.2 Chronic atrial fibrillation; K57.90 Diverticulosis of intestine, part unspecified, without perforation or abscess without bleeding; N18.3 Chronic kidney disease, stage 3 (moderate); I25.5 Ischemic cardiomyopathy
CPT/HCPCS: 36415; 71010; 71250; 74176; 80048; 80053; 80076; 81003; 82308; 82553; 82947; 83605; 83735; 83880; 84443; 84484; 85025; 85027; 85610; 85730; 86334; 87040; 87086; 89190; 93005; 94640; 94760; 96374; 96375; 97162; 97166; 99285; G8978-GP; G8979-GP; G8980-GP; G8987-GO; G8988-GO; G8989-GO; J1940; J2405; J2930; J3475